=== PATIENT | male | born 1950 | race Caucasian/White ===

== ENCOUNTER 2018-09-27 13:07 | Observation (INO) ==
[2018-09-27] MEDS ORDERED: Isovue-370 500 ML INFUS..BTL IV ONE (13:17)
--- NOTE | 2018-09-27 13:17 | Emergency Department Note ---
Disposition Clinical Impression: Elevated troponin, NAZARIO (acute kidney injury) Syncope Qualifiers: Syncope type: unspecified Qualified Code(s): R55 - Syncope and collapse Disposition: Admitted As Inpatient Condition: Fair Referrals: Gibran Garcia MD [Primary Care Provider] - Forms: ED Satisfaction Letter Time of Disposition: 16:46 General Adult HPI - General Chief complaint: ED Chest Pain Stated complaint: Medical Assist Time Seen by Provider: 09/27/18 13:13 Source: patient Mode of arrival: ambulatory Limitations: no limitations Nursing Notes Reviewed: Yes Vital Signs Reviewed: Yes - History of Present Illness HPI Narrative: Patient is a 68-year-old male presenting for syncope. Patient has significant past medical vascular history. He states that while here in the hospital visiting a friend in the ICU, he became very lightheaded and dizzy started having mid chest pain that radiated to his back. He stated that he was sitting in a chair and became syncopal. He states that he is continuing to have lightheaded and dizziness as well as back and back pain. He describes to be a sharp shooting pain. He states he has slight pain in his chest that is from his abdomen. Patient denies any nausea, vomiting. He shortness of breath. He reggie es any lower extremity pain, numbness or tingling. - Related Data Home Medications Medication Instructions Recorded Confirmed Albuterol Sulfate [Albuterol 1 puff IH Q4HR PRN 08/26/18 08/26/18 Inhaler] Aspirin [Lo-Dose Aspirin EC] 81 mg PO DAILY 08/26/18 08/26/18 Atorvastatin [Lipitor] 80 mg PO HS 08/26/18 08/26/18 Budesonide/Formoterol 160/4.5 1 puff IH BID 08/26/18 08/26/18 [Symbicort 160/4.5] Cholecalciferol (Vitamin D3) 1,000 unit PO DAILY 08/26/18 08/26/18 [Vitamin D3] Fish Oil/Borage/Flax/Om3,6,9#1 1,200 mg PO DAILY 08/26/18 08/26/18 [[place] 3-6-9 1,200 mg Softgel] Furosemide [Lasix] 40 mg PO BID 08/26/18 08/26/18 Insulin Glargine [Lantus] 33 unit SQ HS 08/26/18 08/26/18 Metoprolol Succinate [Toprol Xl] 50 mg PO HS 08/26/18 08/26/18 Montelukast [Singulair] 10 mg PO DAILY 08/26/18 08/26/18 Multivitamin [One-Daily 1 each PO DAILY 08/26/18 08/26/18 Multi-Vitamin] Nitroglycerin [Nitrostat] 0.4 mg SL DAILY PRN 08/26/18 08/26/18 Pantoprazole Sodium [Protonix] 40 mg PO DAILY 08/26/18 08/26/18 Saxagliptin HCl [Onglyza] 5 mg PO DAILY 08/26/18 08/26/18 Tamsulosin HCl [Flomax] 0.4 mg PO DAILY 08/26/18 08/26/18 Previous Rx's Medication Instructions Recorded Clopidogrel [Plavix] 75 mg PO DAILY tablet 08/27/18 Lisinopril [Zestril] 2.5 mg PO DAILY tablet 08/27/18 Metformin HCl [Fortamet] 500 mg PO BID #0 08/27/18 Allergies Allergy/AdvReac Type Severity Reaction Status Date / Time oxycodone [Oxycodone] Allergy Hallucinati Verified 08/26/18 19:39 ng Sulfa (Sulfonamide Allergy Gastrointestinal Verified 08/26/18 08:33 Antibiotics) Upset All systems ED: reviewed and negative except as stated. Review of Systems: As Per HPI Constitutional: Denies: fever, chills, weakness, weight change ENT ED: Denies: congestion Cardiovascular: Reports: syncope. Denies: chest pain, palpitations Respiratory: Denies: cough, dyspnea, wheezes, hemoptysis, stridor Gastrointestinal: Reports: abdominal pain. Denies: nausea, vomiting, diarrhea Genitourinary: Denies: urgency, dysuria, frequency, hematuria Musculoskeletal: Reports: back pain Integumentary: Denies: rash, abrasion, lesions Neurological: Reports: as per HPI. Denies: headache, weakness, numbness, paresthesias, confusion Endocrine: Denies: fatigue Past Medical History - Past Medical History Medical history: Reports: arthritis, coronary artery disease, diabetes, hyperlipidemia, hypertension Surgical history: Reports: coronary bypass (CABG), orthopedic, other Psychiatric history: Reports: no psych history - Social History Smoking Status: Former smoker Smokeless Tobacco Status: No Alcohol use: Reports: none Drug use: Reports: none Physical Exam - General Limitations: no limitations General appearance: alert, in no apparent distress - Head Head exam: atraumatic, normocephalic, normal inspection - Eye Eye exam: Present: normal appearance, PERRL, EOMI - ENT ENT exam: normal exam, normal oropharynx, mucous membranes moist - Neck Neck exam: Present: normal inspection, full ROM, trachea midline - Chest Chest inspection: Present: normal inspection, symmetric chest wall rise - Respiratory Respiratory exam: Present: normal lung sounds bilaterally. Absent: respiratory distress, wheezes - Cardiovascular Cardiovascular exam: Present: regular rate, normal rhythm, normal heart sounds - Abdominal Exam Abdominal exam: Present: soft, tenderness (minimal throughout the entire abdomen, no guarding or rebound). Absent: Non-Tender, distention, guarding, rebound, rigidity - Extremities Exam Extremities exam: Present: normal inspection, full ROM, normal capillary refill. Absent: tenderness, pedal edema - Expanded Lower Extremity Exam Neurovascular/Tendon exam: Absent: pulse deficit, motor deficit, sensory deficit, tendon deficit - Back Exam Back exam: Present: normal inspection, full ROM. Absent: tenderness, CVA tenderness (R), CVA tenderness (L), vertebral tenderness - Neurological Exam Neurological exam: Present: alert, oriented X3 - Psychiatric Psychiatric exam: Present: normal affect, normal mood - Skin Skin exam: Present: warm, dry, intact, normal color Course Vital Signs Temperature 97.6 F 09/27/18 13:08 Pulse Rate 71 09/27/18 13:08 Respiratory Rate 20 09/27/18 13:08 Blood Pressure 109/65 09/27/18 13:08 O2 Sat by Pulse Oximetry 98 09/27/18 13:08 Temperature 97.6 F 09/27/18 13:08 Pulse Rate 63 09/27/18 15:30 Respiratory Rate 18 09/27/18 15:30 Blood Pressure 105/56 09/27/18 15:30 O2 Sat by Pulse Oximetry 97 09/27/18 15:30 Oxygen Delivery Oxygen Delivery Nasal Cannula Medical Decision Making - [facility] Narrative Medical decision making narrative: Patient is a 68-year-old male who presents for syncopal episode. Patient with multiple comorbidities. On examination, patient states he is slightly lighthe aded and dizzy, does have tenderness to palpation throughout the abdomen. Neuro exam is unremarkable. Concern for intracranial etiology. CTA of the head and neck are unremarkable. EKG was performed which shows ventricular rate of 76, intervals are within normal limits, left bundle branch block is noted, no ischemic changes are noted. CBC is unremarkable. BMP does show elevated serum creatinine from baseline. Patient was given fluids. He also had a slightly elevated troponin at 0.04, consistent with most likely demand ischemia. EKG shows no acute ischemic changes. At this point in time, given to go episode will admit patient for further evaluation and recommendations. - Medical Records Medical records reviewed: Yes I reviewed the patient's medical records. - Lab Data Lab results reviewed: Yes I reviewed the patient's lab results. Result diagrams: 09/27/18 13:15 09/27/18 13:15 Lab Results 09/27/18 09/27/18 09/27/18 Range/Units 13:15 13:15 13:15 WBC 8.2 (4.3-11.1) K/mcL RBC 4.99 (4.19-5.50) M/mcL Hgb 12.3 L (12.9-16.9) g/dL Hct 39.4 (37.5-50.1) % MCV 79.0 L (83.0-100.0) fL MCH 24.6 L (28.0-33.3) pg MCHC 31.2 L (31.6-35.5) g/dL RDW 15.7 H (11.5-14.5) % Plt Count 165 (140-400) K/mcL MPV 11.1 (9.4-12.4) fL Immature Gran % 0.2 (0-4) % Seg Neutrophils % 59.0 % Lymphocytes % 22.4 % Monocytes % 11.5 % Eosinophils % 5.8 % Basophils % 1.1 % Neutrophils # 4.9 (1.6-8.9) K/mcL Lymphocytes # 1.8 (0.6-4.6) K/mcL Monocytes # 1.0 (0.0-1.3) K/mcL Eosinophils # 0.5 (0.0-0.6) K/mcL Basophils # 0.1 (0.0-0.2) K/mcL PT 12.9 H (9.4-12.1) Seconds INR 1.1 Sodium 137 (136-145) mEq/L Potassium 4.5 (3.5-5.1) mEq/L Chloride 102 (98-107) mEq/L Carbon Dioxide 26 (23-29) mEq/L BUN 29 H (8-23) mg/dL Creatinine 1.68 H (0.70-1.30) mg/dL Est GFR ( Amer) 49 L (> 60) Est GFR (Non-Af Amer) 41 L (> 60) BUN/Creatinine Ratio 17 (6-26) Glucose 191 H (70-105) mg/dL Calculated Osmolality 295 (280-300) Calcium 9.3 (8.6-10.3) mg/dL Total Bilirubin 0.6 (0.3-1.0) mg/dL AST 31 (13-39) Units/L ALT 28 (7-52) Units/L Alkaline Phosphatase 89 (34-104) Units/L Troponin I 0.04 H* (< 0.04) ng/mL Serum Total Protein 7.1 (6.4-8.9) g/dL Albumin 4.2 (3.5-5.7) g/dL Globulin 2.9 (2.4-3.5) g/dL Albumin/Globulin Ratio 1.4 (1.1-2.2) - Radiology Data Radiology results reviewed: Yes I reviewed the patient's radiology results. Chest X-Ray 09/27/18 13:16 IMPRESSION: No acute cardiopulmonary process. D/ / Jorge Luis Gonzales MD / Jorge Luis Gonzales MD Interpreting Provider: Jorge Luis Gonzales MD Head CTA 09/27/18 13:17 IMPRESSION: 1. No acute intracranial abnormality. 2. Unremarkable CTA of the head. D/ / Perry Perez MD / Perry Perez MD Interpreting Provider: Perry Perez MD Neck CTA 09/27/18 13:17 IMPRESSION: 1. No acute intracranial abnormality. 2. Unremarkable CTA of the head. D/ / Perry Perez MD / Perry Perez MD Interpreting Provider: Perry Perez MD Critical Care Time Critical Care Time: Yes Total Critical Care Time: 35 Attestation: Total care time managing patient's AK and 60. Alice - Alice Situation: Demographics, MOA Background: Presenting Complaint, Relevant PMH, Meds, & Allergies Assessment: Vital Signs, Course and respsone to treatment, Exam Concerns, Patient/Family Expectation, Pertinant Lab Results, Outstanding Labs Recommendation: Barrier(s) to disposition, Recommendation based on pending studies, treatments, or consults SJayla Report Given to: hospitalist Alice Repor Time: 16:46 (accepted) Attestation Statement - Attestation Attestation: Patient was seen with resident physician. I reviewed the history, physical, assessment and plan, and agree with the findings. I also personally evaluated this patient and had [id number] time with this patient. 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 Patient apparently was at the ICU visiting a friend when he became lightheaded and diaphoretic and had near syncope to syncope. Patient was seated at the time, so he did not pass out to the point where he landed on the ground. His son seems to indicate that he thinks if he were standing he would have fallen over. Patient also had a twinge of chest pain through the episode. His history is significant for quadruple bypass several years ago and stents placed about a month ago. He currently says he feels generally weak but no other complaints. Chest pain is resolved. Review of systems as above remainder negative. Physical exam vital signs are stable. ENT is unremarkable. Heart regular rhythm and rate. Lungs clear. Abdomen is soft and nontender. Extremities show no signs of traumatic injury. Neurologically alert and oriented moves all extremities there is no focal deficits. Skin no rashes. Psych normal. ED course we will get a CTA of the head neck. EKG shows no acute ischemic changes. Because of the patient's age and cardiac history he will end up coming in for syncope workup. Hemodynamically he remained stable while in the emergen cy department. I agree with resident physician assessment and plan. I once workup is complete hospitalist service will be notified as to the need for admission. Patient's workup did not reveal any acute abnormalities. He was stable while in the emergency department. He did have mildly elevated troponin, but he also had Nazario. I he will be admitted for further evaluation and treatment. Critical care time for this patient was 35 minutes.
[2018-09-27 14:02] LABS: Basophils # 0.1 K/mcL (0.0-0.2); Basophils % 1.1 %; Eosinophils # 0.5 K/mcL (0.0-0.6); Eosinophils % 5.8 %; Hematocrit 39.4 % (37.5-50.1); Hemoglobin 12.3 g/dL (12.9-16.9); Immature Granulocytes % 0.2 % (0-4); Lymphocytes # 1.8 K/mcL (0.6-4.6); Lymphocytes % 22.4 %; Mean Corpuscular HGB Conc 31.2 g/dL (31.6-35.5); Mean Corpuscular Hemoglobin 24.6 pg (28.0-33.3); Mean Platelet Volume 11.1 fL (9.4-12.4); Monocytes % 11.5 %; Neutrophils # 4.9 K/mcL (1.6-8.9); Platelet Count 165 K/mcL (140-400); Red Blood Count 4.99 M/mcL (4.19-5.50); Red Cell Distribution Width 15.7 % (11.5-14.5)
[2018-09-27 14:10] LABS: INR 1.1; Prothrombin Time 12.9 Seconds (9.4-12.1)
[2018-09-27 14:23] LABS: Albumin 4.2 g/dL (3.5-5.7); Albumin/Globulin Ratio 1.4 (1.1-2.2); Bilirubin,Total 0.6 mg/dL (0.3-1.0); Calcium 9.3 mg/dL (8.6-10.3); Globulin 2.9 g/dL (2.4-3.5); Potassium 4.5 mEq/L (3.5-5.1); Total Protein 7.1 g/dL (6.4-8.9)
[2018-09-27 14:29] LABS: Troponin I 0.04 ng/mL (< 0.04)
[2018-09-27] MEDS ORDERED: 0.9 % Sodium Chloride 1,000 ML IVC ONE (14:49)
--- NOTE | 2018-09-27 17:56 | Internal Med History&Physical ---
Date of Encounter: 09/27/18 Time of Encounter: 17:48 Internal Medicine - H&P: HPI Admitted From: Home Plans for Post Hospital Care: Home History of present illness: Mr. Andino is a 68 year old male presenting for syncope. Patient has significant past medical of CAD s/p CABG and stents placement. He states that while here in the hospital visiting a friend in the ICU, he became very lightheaded and dizzy started having mid chest pain that radiated to his back. He stated that he was sitting in a chair and became syncopal. He states that he is continuing to have lightheaded and dizziness as well as back and back pain. He describes to be a sharp shooting pain. He received one nitro which he reported made his dizziness and chest pain twice worse. He had a stress test last year which brought up the same sensation as this time including syncope and chest pain. He had LHC about 4 weeks ago and had 2 stents placed. He has been complaint with his meds. BP is always on the low side. Patient denies any nausea, vomiting. He shortness of breath. He denies any lower extremity pain, numbness or tingling. He received IVF at the ED and syncope and chest pain resolved. Labs showed borderline troponin, slightly elevated creatinine, EKG showed LBBB with PAC. CXR unremarkable. CTA head and neck are normal. His symptoms are very concerning for malignant arrhythmia and ACS, he will be admitted for further evaluation. Pt will be full code in hospital Past Med Surg Social Fam HX - Past Medical History Medical history: arthritis, coronary artery disease, diabetes, hyperlipidemia, hypertension Additional medical history: obesity Psychiatric history: no psych history - Past Surgical History Surgical History: coronary bypass (CABG), orthopedic, other Additional surgical history: open heart sx. stents x2 (08/27/18). sg x4 right knee - Social History Smoking Status: Former smoker Smokeless Tobacco Status: No Alcohol use: none Drug use: none - Family History Mother Living Status: Hx Family Cardiac Disorders: Yes (HTN, Angina, Stroke) Hx Family Respiratory Disorders: No Hx Family Cancer: No Hx Family GI Disorders: No Hx Family Endocrine Disorder: No Hx Family Neuromuscular Disorders: No Hx Family Neurologic Disorders: No Hx Family HEENT Disorders: No Hx Family Autoimmune Disorders: No Father Hx Family Cardiac Disorders: No Hx Family Respiratory Disorders: No Hx Family Cancer: Yes (colon cancer) Hx Family GI Disorders: No Hx Family Endocrine Disorder: No Hx Family Neuromuscular Disorders: No Hx Family Neurologic Disorders: No Hx Family HEENT Disorders: No Hx Family Autoimmune Disorders: No Internal Medicine - H&P: Meds Albuterol Sulfate [Albuterol Inhaler] 1 puff IH Q4HR PRN 08/26/18 [History] Aspirin [Lo-Dose Aspirin EC] 81 mg PO DAILY 08/26/18 [History] Atorvastatin [Lipitor] 80 mg PO HS 08/26/18 [History] Budesonide/Formoterol 160/4.5 [Symbicort 160/4.5] 1 puff IH BID 08/26/18 [History] Cholecalciferol (Vitamin D3) [Vitamin D3] 1,000 unit PO DAILY 08/26/18 [History] Fish Oil/Borage/Flax/Om3,6,9#1 [[place] 3-6-9 1,200 mg Softgel] 1,200 mg PO DAILY 08/26/18 [History] Furosemide [Lasix] 40 mg PO BID 08/26/18 [History] Insulin Glargine [Lantus] 33 unit SQ HS 08/26/18 [History] Metoprolol Succinate [Toprol Xl] 50 mg PO HS 08/26/18 [History] Montelukast [Singulair] 10 mg PO DAILY 08/26/18 [History] Multivitamin [One-Daily Multi-Vitamin] 1 each PO DAILY 08/26/18 [History] Nitroglycerin [Nitrostat] 0.4 mg SL DAILY PRN 08/26/18 [History] Pantoprazole Sodium [Protonix] 40 mg PO DAILY 08/26/18 [History] Saxagliptin HCl [Onglyza] 5 mg PO DAILY 08/26/18 [History] Tamsulosin HCl [Flomax] 0.4 mg PO DAILY 08/26/18 [History] Clopidogrel [Plavix] 75 mg PO DAILY tablet 08/27/18 [Rx] Lisinopril [Zestril] 2.5 mg PO DAILY tablet 08/27/18 [Rx] Metformin HCl [Fortamet] 500 mg PO BID #0 08/27/18 [Rx] Allergy/AdvReac Type Severity Reaction Status Date / Time oxycodone [Oxycodone] Allergy Hallucinati Verified 08/26/18 19:39 ng Sulfa (Sulfonamide Allergy Gastrointestinal Verified 08/26/18 08:33 Antibiotics) Upset All Systems PM: A 10-system review of systems was performed and is negative for pertinent findings except as documented above in the HPI. Review of systems: REVIEW OF SYSTEMS: CONSTITUTIONAL: No weight loss, fever, chills, weakness or fatigue. HEENT: Eyes: No visual loss, blurred vision, double vision or yellow sclerae. Ears, Nose, Throat: No hearing loss, sneezing, congestion, runny nose or sore throat. SKIN: No rash or itching. CARDIOVASCULAR: see HPI. RESPIRATORY: No shortness of breath, cough or sputum. GASTROINTESTINAL: No anorexia, nausea, vomiting or diarrhea. No abdominal pain or blood. GENITOURINARY: No dysuria, urgency, or frequency. NEUROLOGICAL: No headache, dizziness, syncope, paralysis, ataxia, numbness or tingling in the extremities. No change in bowel or bladder control. MUSCULOSKELETAL: No muscle, back pain, joint pain or stiffness. HEMATOLOGIC: No anemia, bleeding or bruising. LYMPHATICS: No enlarged nodes. No history of splenectomy. PSYCHIATRIC: No history of depression or anxiety. ENDOCRINOLOGIC: No reports of sweating, cold or heat intolerance. No polyuria or polydipsia. - Constitutional Vitals: Temp Pulse Resp BP Pulse Ox 97.6 F 63 18 105/56 97 09/27/18 13:08 09/27/18 15:30 09/27/18 15:30 09/27/18 15:30 09/27/18 15:30 General appearance: Present: cooperative, A&O X 3, answers questions approp riately Exam: PHYSICAL EXAMINATION: GENERAL APPEARANCE: The patient is alert, oriented and in no acute distress. HEENT: Head is normocephalic. The sinuses are nontender. Pupils are equal and reactive. The nares are patent. Oropharynx clear without lesions. NECK: Supple without lymphadenopathy. HEART: Regular rate and rhythm. LUNGS: No crackles or wheezes are heard. ABDOMEN: Soft, nontender, nondistended with good bowel sounds heard. Inguinal area is normal. EXTREMITIES: Without cyanosis, clubbing or edema. NEUROLOGICAL: Gross nonfocal. SKIN: Warm and dry without any rash. Internal Med - H&P Results - Labs CBC & Chem 7: 09/27/18 13:15 09/27/18 13:15 Labs: Short CBC 09/27/18 Range/Units 13:15 WBC 8.2 (4.3-11.1) K/mcL Hgb 12.3 L (12.9-16.9) g/dL Hct 39.4 (37.5-50.1) % Plt Count 165 (140-400) K/mcL Neutrophils # 4.9 (1.6-8.9) K/mcL BMP 09/27/18 13:15 Sodium 137 Potassium 4.5 Chloride 102 Carbon Dioxide 26 BUN 29 H Creatinine 1.68 H Glucose 191 H Calcium 9.3 Cardiac Enzymes 09/27/18 Range/Units 13:15 Troponin I 0.04 H* (< 0.04) ng/mL Liver Function 09/27/18 Range/Units 13:15 Total Bilirubin 0.6 (0.3-1.0) mg/dL AST 31 (13-39) Units/L ALT 28 (7-52) Units/L Alkaline Phosphatase 89 (34-104) Units/L Albumin 4.2 (3.5-5.7) g/dL - Impressions ITS Impressions Chest X-Ray 09/27/18 13:16 IMPRESSION: No acute cardiopulmonary process. D/ / Jorge Luis Gonzales MD / Jorge Luis Gonzales MD Interpreting Provider: Jorge Luis Gonzales MD Head CTA 09/27/18 13:17 IMPRESSION: 1. No acute intracranial abnormality. 2. Unremarkable CTA of the head. D/ / Perry Perez MD / Perry Perez MD Interpreting Provider: Perry Perez MD Neck CTA 09/27/18 13:17 IMPRESSION: 1. No acute intracranial abnormality. 2. Unremarkable CTA of the head. D/ / Perry Perez MD / Perry Perez MD Interpreting Provider: Perry Perez MD - Assessment and plan (1) Syncope Current Visit: Yes Status: Acute Assessment and plan: 68 year old man with CAD s/p CABG and stents, CHF, COPD, DM presented with one episode of lightheadedness and syncope. trop borderline, Cr slightly elevated. EKG, CXR, CTA head and neck normal. - Given the significant Hx of CAD, cardiac related syncope is suspected. - Orthostatic BP once. - EKG showed LBBB with frequent PAC, hard to interpret ST-T change in the setting of LBBB. trop 0.04, will continue to trend. Continue tele monitor. ECHO. - Continue home meds including asa, statin, plavix. BB and ACEI. - Cardiology consult. Qualifiers: Syncope type: unspecified Qualified Code(s): R55 - Syncope and collapse (2) NAZARIO (acute kidney injury) Current Visit: Yes Status: Acute Assessment and plan: Likely due to verdiuresis, decrease home lasix from 40 mg BId to 20 mg BID. (3) Elevated troponin Current Visit: Yes Status: Acute Assessment and plan: Continue trending. (4) CAD (coronary artery disease) Current Visit: No Status: Acute Assessment and plan: Same as above. Qualifiers: Coronary Disease-Associated Artery/Lesion type: bypass graft [place] vs. tr ansplanted heart: [place] heart Associated angina: without angina Qualified Code(s): I25.810 - Atherosclerosis of coronary artery bypass graft(s) without angina pectoris (5) Hx of CABG Current Visit: No Status: Chronic Assessment and plan: same as above. (6) COPD (chronic obstructive pulmonary disease) Current Visit: No Status: Chronic Assessment and plan: Continue home meds. Qualifiers: COPD type: unspecified COPD Qualified Code(s): J44.9 - Chronic obstructive pulmonary disease, unspecified (7) Diabetes mellitus Current Visit: No Status: Chronic Assessment and plan: continue home insulin, hold all the oral agents, insulin sliding scale. 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 Qualifiers: Heart failure type: diastolic Heart failure chronicity: chronic Qualified Code(s): I50.32 - Chronic diastolic (congestive) heart failure (9) DVT prophylaxis Current Visit: Yes Status: Acute Assessment and plan: Heparin sq. - Time Spent With Patient Total time spent is greater than 50% in coordination of care (as documented) at patient's floor/unit and/or counseling patient: Greater than 35 minutes
[2018-09-27] MEDS ORDERED: traMADol 50 MG TABLET PO PRN (18:10)
[2018-09-27] MEDS ORDERED: Naloxone 0.4 MG/ML INJ IVP PRN (18:10)
[2018-09-27] MEDS ORDERED: Acetaminophen 325 MG TABLET PO PRN (18:10)
[2018-09-27] MEDS ORDERED: D5% in Water 1,000 ML IVC PRN (18:12)
[2018-09-27] MEDS ORDERED: Dextrose Gel 15 GM/37.5 ML TUBE PO PRN ×2 (18:12)
[2018-09-27] MEDS ORDERED: *HR* Dextrose 50 % in Water (Syg) 50 ML SYRINGE IVP PRN (18:12)
[2018-09-27] MEDS ORDERED: Nitroglycerin 0.4 MG TAB.SUBL SL PRN (18:26)
[2018-09-27 19:44] LABS: Bilirubin,Urine Negative (Negative); Blood,Urine Negative (Negative); Clarity,Urine Clear (Clear); Color,Urine Yellow (Yellow); Glucose,Urine (UA) Normal (Normal); Ketones,Urine Negative (Negative); Leukocyte Esterase,Urine Negative (Negative); Nitrite,Urine Negative (Negative); PH,Urine 5.5 pH Units (5.0-8.0); Protein,Urine Negative (Neg-Trace); Specific Gravity,Urine > 1.030 (1.010-1.025); Urobilinogen,Urine Normal (Normal)
[2018-09-27] MEDS: Insulin LISPRO 300 UNITS/3 ML VIAL SQ SCH (21:43)
[2018-09-27] MEDS: Insulin DETEMIR 100 UNIT/ML X5UNITS SQ SCH (21:47)
[2018-09-27] MEDS: *HR* Heparin 5,000 UNIT/ML VIAL SQ SCH (21:47)
[2018-09-28 01:32] LABS: Hematocrit 36.8 % (37.5-50.1); Hemoglobin 11.5 g/dL (12.9-16.9); Mean Corpuscular HGB Conc 31.3 g/dL (31.6-35.5); Mean Corpuscular Hemoglobin 24.8 pg (28.0-33.3); Mean Corpuscular Volume 79.3 fL (83.0-100.0); Platelet Count 119 K/mcL (140-400); Red Blood Count 4.64 M/mcL (4.19-5.50); Red Cell Distribution Width 15.6 % (11.5-14.5)
[2018-09-28 01:49] LABS: Albumin 3.8 g/dL (3.5-5.7); Albumin/Globulin Ratio 1.5 (1.1-2.2); Bilirubin,Total 0.4 mg/dL (0.3-1.0); Calcium 8.7 mg/dL (8.6-10.3); Chol/HDL Ratio 3.9 (0-4.9); Globulin 2.6 g/dL (2.4-3.5); Magnesium 1.7 mg/dL (1.6-2.6); Potassium 4.1 mEq/L (3.5-5.1); Total Protein 6.4 g/dL (6.4-8.9)
[2018-09-28] MEDS: *HR* Heparin 5,000 UNIT/ML VIAL SQ SCH ×2 (05:00→16:45)
[2018-09-28] MEDS: Aspirin Enteric Coated 81 MG Tablet PO SCH (07:20)
[2018-09-28] MEDS: Insulin LISPRO 300 UNITS/3 ML VIAL SQ SCH ×4 (07:20→20:55)
--- NOTE | 2018-09-28 14:13 | Cardiology Consult Note ---
<John Mackey - Last Filed: 09/28/18 14:41> Date of Encounter: 09/28/18 Time of Encounter: 14:10 Assessment and Plan (1) Syncope Current Visit: Yes Status: Acute Per Cardiology: Head and neck CTA negative. Orthostatic vital signs appear to be pending. (2) Elevated troponin Current Visit: Yes Status: Acute Per Cardiology: Very mild initial troponin elevation in setting of syncopal event with subsequent troponins negative 3. Repeat limited echo with the definity pending to reevaluate EF. Has known history of CAD-- recent stenting one month ago. No cardiac rehabilitation consult warranted at this time. Patient developed chest pain and utilized nitroglycerin glycerin pill, it appears patient had hypotensive episode with nitroglycerin. Suspect initial troponin demand ischemia from hypotension. Awaiting repeat echo to evaluate EF. (3) Ischemic cardiomyopathy Current Visit: Yes Status: Chronic Per Cardiology: Has known ischemic cardiomyopathy with actual outpatient echo pending. Current echo unable to obtain EF. We will check repeat limited echo with Definity to further assess EF currently. Will resume beta yuri as tolerated, consider resuming DEBBIE inhibitor if able. (4) CAD (coronary artery disease) Current Visit: No Status: Chronic Per Cardiology: Last left heart catheterization 08/2018: Lesion Findings/Interventions * Left Main Coronary Artery There is a 30% stenosis in the Mid LMCA. * Left Anterior Descending There is a 80% stenosis in the Proximal LAD. There is a 100% stenosis in the Mid LAD- [employer]. Mid/distal LAD fill via patent LIAO graft. * Circumflex There is a 12 mm long, 90% stenosis in the [place]/Proximal Circumflex. The lesion has a PAVAN flow of 3 and has no thrombus present. An intervention was performed on the Ostial Circumflex with a final stenosis of 0%. There were no lesion complications. The final PAVAN flow was 3. There is a 100% stenosis in the 2nd Marginal. The lesion has a PAVAN flow of 0. OM2 fills via patent seq SVG from OM3 to OM2. There is a 12 mm long, 99% stenosis in the 3rd Marginal. The lesion has a PAVAN flow of 3 and has no thrombus present. An intervention was performed on the 3rd Marginal with a final stenosis of 0%. There were no lesion complications. The final PAVAN flow was 3. * Ramus There is a 100% stenosis in the Ramus- [employer]. The lesion has a PAVAN flow of 0 and has collaterals which feed from left to left. * Right Coronary Artery There is a 40% stenosis in the Proximal RCA. There is a 99% stenosis in the Right PDA- small, diffusely diseased. R PDA fills via patent SVG. Additional Findings: Grafts * The left internal mammary graft to the Mid LAD is patent. PAVAN flow is 3. * The saphenous vein graft to the Right PDA is patent. PAVAN flow is 3. * The saphenous vein graft to the 2nd Marginal is occluded. The sequence portion from OM2 to OM3 is patent. On aspirin and Plavix. Will resume home dose of Lipitor. Long-acting nitrate, beta yuri, DEBBIE inhibitor on hold, will resume Toprol-XL half of previous dose at 25 mg by mouth daily for now. Discussion w patient/family: The assessment and plan as outlined above was discussed with the patient and/or family members who expressed understanding and agreement. All questions were answered. Thank you for involving us in the care of your patient. Please call with any questions. History of Present Illness Consult date: 09/28/18 Consult reason: CP Chief complaint: Dizziness, CP History of present illness: Previous records reviewed: "Mr. Andino is a 68 year old male presenting for syncope. Patient has significant past medical of CAD s/p CABG and stents placement. He states that while here in the hospital visiting a friend in the ICU, he became very lightheaded and dizzy started having mid chest pain that radiated to his back. He stated that he was sitting in a chair and became syncopal. He states that he is continuing to have lightheaded and dizziness as well as back and back pain. He describes to be a sharp shooting pain. He received one nitro which he reported made his dizziness and chest pain twice worse. He had a stress test last year which brought up the same sensation as this time including syncope and chest pain. He had LHC about 4 weeks ago and had 2 stents placed. He has been complaint with his meds. BP is always on the low side. Patient denies any nausea, vomiting. He shortness of breath. He denies any lower extremity pain, numbness or tingling". Cardiology consult for syncope and chest pain. Patient seen with at bedside. Patient confirms above information. He reports visiting friend and development midsternal chest heaviness, first episode of chest pain since stenting about one month ago. He reports he has never utilize nitroglycerin pills in the past, decided to utilize one nitroglycerin pill within one to 2 minutes developed episodes of dizziness, lightheadedness and believes he passed out in a chair. Reports systolic blood pressure in the 80s in the ER. Denies any current chest pain. Denies any short of breath or palpitations. Denies any active bleeding or blood loss. Reports compliance of medications at home. Denies any infectious process. Past Med Surg Social Fam HX - Past Medical History Attestation: Yes The following information was validated with the patient. Source: patient, old records reviewed Medical history: arthritis, coronary artery disease, diabetes, hyperlipidemia, hypertension Additional medical history: obesity Psychiatric history: no psych history - Past Surgical History Surgical History: coronary bypass (CABG), orthopedic, other Additional surgical history: open heart sx. stents x2 (08/27/18). sg x4 right knee - Social History Smoking Status: Former smoker Smokeless Tobacco Status: No Alcohol use: none Drug use: none - Family History Mother Living Status: Hx Family Cardiac Disorders: Yes (HTN, Angina, Stroke) Hx Family Respiratory Disorders: No Hx Family Cancer: No Hx Family GI Disorders: No Hx Family Endocrine Disorder: No Hx Family Neuromuscular Disorders: No Hx Family Neurologic Disorders: No Hx Family HEENT Disorders: No Hx Family Autoimmune Disorders: No Father Hx Family Cardiac Disorders: No Hx Family Respiratory Disorders: No Hx Family Cancer: Yes (colon cancer) Hx Family GI Disorders: No Hx Family Endocrine Disorder: No Hx Family Neuromuscular Disorders: No Hx Family Neurologic Disorders: No Hx Family HEENT Disorders: No Hx Family Autoimmune Disorders: No Medications and Allergies Albuterol Sulfate [Albuterol Inhaler] 1 puff IH Q4HR PRN 08/26/18 [History] Aspirin [Lo-Dose Aspirin EC] 81 mg PO DAILY 08/26/18 [History] Atorvastatin [Lipitor] 80 mg PO HS 08/26/18 [History] Budesonide/Formoterol 160/4.5 [Symbicort 160/4.5] 1 puff IH BID 08/26/18 [History] Cholecalciferol (Vitamin D3) [Vitamin D3] 2,000 unit PO DAILY 08/26/18 [History] Furosemide [Lasix] 40 mg PO BID 08/26/18 [History] Insulin Glargine [Lantus] 66 unit SQ HS 08/26/18 [History] Metoprolol Succinate [Toprol Xl] 50 mg PO HS 08/26/18 [History] Montelukast [Singulair] 10 mg PO DAILY 08/26/18 [History] Multivitamin [One-Daily Multi-Vitamin] 1 each PO DAILY 08/26/18 [History] Nitroglycerin [Nitrostat] 0.4 mg SL DAILY PRN 08/26/18 [History] Pantoprazole Sodium [Protonix] 40 mg PO DAILY 08/26/18 [History] Saxagliptin HCl [Onglyza] 5 mg PO DAILY 08/26/18 [History] Tamsulosin HCl [Flomax] 0.4 mg PO DAILY 08/26/18 [History] Clopidogrel [Plavix] 75 mg PO DAILY tablet 08/27/18 [Rx] Lisinopril [Zestril] 2.5 mg PO DAILY tablet 08/27/18 [Rx] Metformin HCl [Fortamet] 500 mg PO BID #0 08/27/18 [Rx] Allergy/AdvReac Type Severity Reaction Status Date / Time oxycodone [Oxycodone] Allergy Hallucinati Verified 08/26/18 19:39 ng Sulfa (Sulfonamide Allergy Gastrointestinal Verified 08/26/18 08:33 Antibiotics) Upset All Systems Review: The remainder of the systems were reviewed and are negative - Cardiovascular Cardiovascular: as per HPI, chest pain at rest, lightheadedness Physical Examination Vital Signs, Last 4 Hours Temp Pulse Resp BP Pulse Ox 09/28/18 12:00 99.0 F 85 16 116/72 93 General: Conversant, No Apparent Distress HEENT: Atraumatic, Normocephaly, Mucus Membranes Moist Neck: No JVD, Normal carotid pulses Cardiac: Reg Rate and Rhythm, Normal S1 and S2, No Murmur Lungs: Normal Breath Sounds, No Wheeze, Rales, Rhonchi Neuro: Alert and responsive, No focal deficits noted Abdomen: Soft, Non-Tender Skin: No rashes noted on visualized skin Musculoskeletal: No Chest Wall Tenderness Extremities: No Clubbing, No Cyanosis, No Edema, Normal Pulses Results 09/28/18 01:09 09/28/18 01:09 Lab Results Laboratory Tests 09/27/18 09/27/18 09/27/18 13:15 13:15 19:40 Hgb Hct INR 1.1 Potassium Creatinine Est GFR (Non-Af Amer) Troponin I 0.04 H* < 0.03 LDL Cholesterol, Calc 09/28/18 09/28/18 09/28/18 01:09 01:09 01:09 Hgb 11.5 L Hct 36.8 L INR Potassium 4.1 Creatinine 1.66 H Est GFR (Non-Af Amer) 41 L Troponin I < 0.03 LDL Cholesterol, Calc 46 09/28/18 07:18 Hgb Hct INR Potassium Creatinine Est GFR (Non-Af Amer) Troponin I < 0.03 LDL Cholesterol, Calc ITS Impressions Chest X-Ray 09/27/18 13:16 IMPRESSION: No acute cardiopulmonary process. D/ / Jorge Luis Gonzales MD / Jorge Luis Gonzales MD Interpreting Provider: Jorge Luis Gonzales MD Head CTA 09/27/18 13:17 IMPRESSION: 1. No acute intracranial abnormality. 2. Unremarkable CTA of the head. D/ / Perry Perez MD / Perry Perez MD Interpreting Provider: Perry Perez MD Neck CTA 09/27/18 13:17 IMPRESSION: 1. No acute intracranial abnormality. 2. Unremarkable CTA of the head. D/ / Perry Perez MD / Perry Perez MD Interpreting Provider: Perry Perez MD Echocardiogram 09/28/18 18:16 Impressions: Technically sub-optimal due to poor echocardiographic windows. LV endocardial border not well visualized to estimate LVEF. Atypical septal motion consistent with post-operative status. Mild left ventricular diastolic dysfunction. RV is not optimally visualized. Mild tricuspid regurgitation. Mild pulmonary hypertension. Recommend repeat Limited study with Imaging Enhancement to evaluate LVEF. Findings: Study Quality * Technically sub-optimal due to poor echocardiographic windows. ECG Findings * Unclear underlying rhythm, possibly sinus with ectopy. Left Ventricle * LV endocardial border not well visualized to estimate LVEF. * Atypical septal motion consistent with post-operative status. * Mild left ventricular diastolic dysfunction. Right Ventricle * RV is not optimally visualized. Left Atrium * Moderately dilated left atrium. Right Atrium * Right atrium is not well visualized. Aortic Valve * No aortic regurgitation. * Trileaflet aortic valve. * No aortic stenosis. Mitral Valve * Normal mitral valve structure. * No mitral stenosis. * Trace mitral regurgitation. Tricuspid Valve * Tricuspid valve not well visualized. * Mild tricuspid regurgitation. * Estimated RA pressure is 8 mmHg. * Estimated RVSP is 36 mmHg. * Mild pulmonary hypertension. Pulmonic Valve * Pulmonic valve is not well visualized. * No pulmonic stenosis. * No pulmonic regurgitation. Pulmonary Artery * Pulmonary artery not well visualized. Aorta * Normally sized aortic root. Pericardium * There is no pericardial effusion present. Interatrial Septum * Interatrial septum not well evaluated. IVC * The IVC is not dilated. * < 50% respiratory change. Active Medications Acetaminophen (Tylenol) 650 mg PO Q6HR PRN PRN Reason: Mild Pain/Fever Stop: 03/29/19 18:11 Aspirin (Aspirin Ec) 81 mg PO DAILY [facility] Stop: 03/30/19 09:01 Last Admin: 09/28/18 07:20 Dose: 81 mg Clopidogrel Bisulfate (Plavix) 75 mg PO DAILY [facility] Stop: 03/30/19 09:01 Last Admin: 09/28/18 07:20 Dose: 75 mg Dextrose/Water (Dextrose 50% (Syg)) 25 ml IVP AD PRN PRN Reason: Hypoglycemia Stop: 03/29/19 18:13 Glucagon (Glucagen) 1 mg IM ONCE PRN PRN Reason: Hypoglycemia Stop: 03/29/19 18:13 Glucose (Gluctose) 15 gm PO ONCE PRN PRN Reason: Hypoglycemia Stop: 03/29/19 18:13 Glucose (Gluctose) 30 gm PO ONCE PRN PRN Reason: Hypoglycemia Stop: 03/29/19 18:13 Heparin Sodium (Porcine) (Heparin) 5,000 unit SQ Q12HCO [facility] Stop: 03/29/19 18:16 Last Admin: 09/28/18 05:00 Dose: 5,000 unit Dextrose (Dextrose 5%) 1,000 mls @ 100 mls/hr IVC .Q10H PRN PRN Reason: HYPOGLYCEMIA Stop: 03/29/19 18:13 Insulin Detemir (Levemir) 30 unit SQ HS ANA ROSA Stop: 03/29/19 21:01 Last Admin: 09/27/18 21:47 Dose: 30 unit Insulin Human Lispro (Humalog) 0 units SQ HS ANA ROSA; Protocol Stop: 03/29/19 21:01 Last Admin: 09/27/18 21:43 Dose: Not Given Insulin Human Lispro (Humalog) 0 units SQ TIDAC ANA ROSA; Protocol Stop: 03/30/19 07:31 Last Admin: 09/28/18 12:02 Dose: 4 units Naloxone HCl (Narcan) 0.4 mg IVP Q2MIN PRN PRN Reason: SEE COMMENTS Stop: 03/29/19 18:11 Nitroglycerin (Nitroglycerin) 0.4 mg SL Q5MIN PRN PRN Reason: Chest Pain Stop: 03/29/19 18:27 - Imaging and Cardiology Echo: pending, report reviewed Cardiac cath: report reviewed - EKG Interpretation EKG results cardiology: personally reviewed, normal ECG, sinus rhythm, other (Appears to be sinus rhythm with PACs and PVCs on telemetry with average heart rate 88 the past 12 hours, no significant events noted) Consult Discharge Plan - Plan Referrals: Gibran Garcia MD [Primary Care Provider] - <Alessio Oliveira J - Last Filed: 09/28/18 19:18> Date of Encounter: 09/28/18 Time of Encounter: 11:00 - Attending Attestation I have personally performed a face to face evaluation on this patient. I have reviewed and agree with the care plan. History and Exam by me shows: CC: chest pain, syncope HPI: Pt was visting friend from hospital, developed new epigastric burning, 4/10, not associated with diaphoresis, nausea or shortness of breath, lasted around four minutes, took his first ever sl ntg, within two minutes became dizzy and lightheaded, had to sit down, thinks he may have passed out for several seconds, awoke on his back looking at the ceiling, however chest pain had resoved, He notes dizziness had resolved while laying flat, returned when stood up and tried to walk, again resolved with lying down. Pts called the squad, pt more conversant and arousable while flat, symptoms resolved en route to [place]. He has had several similar episodes which are not as severe, last less than two minutes and resolve with rest. He is currently resting comportably, reports best he has felt in weeks. ROS: reviewed PMH: chart reviewed, agree with findings Labs reviewed PE: Pt seen and examined, chart reviewed, agree with findings as documented IMP/Plan 1. Chest pain if unclear etiology, continue to monitor enzemes, telemetry, await limited echo results, encourage ambulation on telemetry. Assessment and Plan Discussion w patient/family: The assessment and plan as outlined above was discussed with the patient and/or family members who expressed understanding and agreement. All questions were answered. Thank you for involving us in the care of your patient. Please call with any questions. History of Present Illness History of present illness: Mr. Andino is a 68 year old male All Systems Review: The remainder of the systems were reviewed and are negative Physical Examination Vital Signs, Last 4 Hours Temp Pulse Resp BP Pulse Ox 09/28/18 15:50 98 F 66 16 111/69 94 Results 09/28/18 01:09 09/28/18 01:09 Lab Results 09/27/18 09/28/18 09/28/18 19:40 01:09 01:09 WBC 7.1 Hgb 11.5 L Hct 36.8 L Plt Count 119 L Sodium Potassium Chloride Carbon Dioxide BUN Creatinine Glucose Calcium Magnesium Total Bilirubin AST ALT Alkaline Phosphatase Troponin I < 0.03 < 0.03 09/28/18 09/28/18 01:09 07:18 WBC Hgb Hct Plt Count Sodium 138 Potassium 4.1 Chloride 104 Carbon Dioxide 26 BUN 31 H Creatinine 1.66 H Glucose 222 H Calcium 8.7 Magnesium 1.7 Total Bilirubin 0.4 AST 25 ALT 24 Alkaline Phosphatase 93 Troponin I < 0.03
[2018-09-28] MEDS ORDERED: Perflutren Lipid Microsphere 1.3 ML in 0.9 % Sodium Chloride 8.7 ML IVP ONE (14:24)
--- NOTE | 2018-09-28 14:41 | Internal Med Progress Note ---
Hospitalist Progress Note - Encounter Date of Encounter: 09/28/18 Time of Encounter: 14:39 - Subjective Interval History: Patient seen and examined at bedside. Patient states that he feels back to normal today. He states his symptoms of near syncope occurred shortly after taking nitroglycerin for chest pain. He denies any further chest pain or near s yncope symptoms. Denies fever, chills, shortness of breath, diaphoresis. - Exam Vitals: Temp Pulse Resp BP Pulse Ox 99.0 F 85 16 116/72 93 09/28/18 12:00 09/28/18 12:00 09/28/18 12:00 09/28/18 12:00 09/28/18 12:00 Exam: Gen.: Alert and oriented 3, no acute distress HEENT: Mucous membranes moist with no lesions or bleeding noted Heart: Regular rate and rhythm, no murmurs, rubs, gallops Lungs: Clear to auscultation bilaterally, no rales, rhonchi, wheezes. Abdomen: Soft, nontender, nondistended. Normoactive bowel sounds. Extremities: No clubbing, cyanosis, or edema noted Skin: Warm dry and intact - Assessment and Plan (1) Syncope Current Visit: Yes Status: Acute Assessment and Plan: Etiology unclear, unclear if this is cardiac/arrhythmia in nature although I am also suspecting that the patient's near syncopal episode may be related to nitroglycerin use area no symptoms since presentation. Initial echo could not evaluate EF, repeat echo pending. Cardiology following and will await further recommendations. Continue cardiac telemetry. (2) CAD (coronary artery disease) Current Visit: No Status: Chronic Assessment and Plan: Stable. Recent PCI in August 2018. Doubt that this is new obstructive lesion. Continue aspirin, Plavix, statin, beta yuri. Cardiology following. (3) Hx of CABG Current Visit: No Status: Chronic (4) Elevated troponin Current Visit: Yes Status: Acute Assessment and Plan: Resolved, was initially 0.04, has since normalized. Doubt ACS. Cardiology following. (5) NAZARIO (acute kidney injury) Current Visit: Yes Status: Acute Assessment and Plan: GFR 41, stable since admission. Good urine output. Patient has had multiple episodes of NAZARIO on the past but renal function has usually returned to normal. Possibly due to overdiuresis. Continue to hold Lasix as the patient appears euvolemic at this time and reassess daily. (6) COPD (chronic obstructive pulmonary disease) Current Visit: No Status: Chronic Assessment and Plan: Stable. No evidence of acute exacerbation. (7) Diabetes mellitus Current Visit: No Status: Chronic Assessment and Plan: Blood sugar under good control at this time. Continue basal insulin with sliding scale coverage. Adjust insulin based on blood sugar readings. (8) CHF (congestive heart failure) Current Visit: No Status: Chronic Assessment and Plan: No evidence of acute exacerbation. Continue to monitor. (9) DVT prophylaxis Current Visit: Yes Status: Acute Assessment and Plan: Heparin 5000 units subcutaneous twice a day. - Time Spent with Patient Total time spent is greater than 50% in coordination of care (as documented) at patient's floor/unit and/or counseling patient: 25 - 35 minutes Plan of Care Discussed with: patient Internal Medicine: Result - Labs CBC & Chem 7: 09/28/18 01:09 09/28/18 01:09 Labs: Short CBC 09/28/18 Range/Units 01:09 WBC 7.1 (4.3-11.1) K/mcL Hgb 11.5 L (12.9-16.9) g/dL Hct 36.8 L (37.5-50.1) % Plt Count 119 L (140-400) K/mcL BMP 09/28/18 01:09 Sodium 138 Potassium 4.1 Chloride 104 Carbon Dioxide 26 BUN 31 H Creatinine 1.66 H Glucose 222 H Calcium 8.7 Cardiac Enzymes 09/27/18 09/28/18 09/28/18 Range/Units 19:40 01:09 07:18 Troponin I < 0.03 < 0.03 < 0.03 (< 0.04) ng/mL Liver Function 09/28/18 Range/Units 01:09 Total Bilirubin 0.4 (0.3-1.0) mg/dL AST 25 (13-39) Units/L ALT 24 (7-52) Units/L Alkaline Phosphatase 93 (34-104) Units/L Albumin 3.8 (3.5-5.7) g/dL Urine 09/27/18 Range/Units 19:23 Urine Color Yellow (Yellow) Urine Clarity Clear (Clear) Urine pH 5.5 (5.0-8.0) pH Units Ur Specific [place] > 1.030 H (1.010-1.025) Urine Protein Negative (Neg-Trace) mg/dL Urine Glucose (UA) Normal (Normal) mg/dL - ABG Interpretation ABG results: PT/INR, D-dimer PT 12.9 Seconds (9.4-12.1) H 09/27/18 13:15 - Impressions Impressions Head CTA 09/27/18 13:17 IMPRESSION: 1. No acute intracranial abnormality. 2. Unremarkable CTA of the head. D/ / Perry Perez MD / Perry Perez MD Interpreting Provider: Perry Perez MD Neck CTA 09/27/18 13:17 IMPRESSION: 1. No acute intracranial abnormality. 2. Unremarkable CTA of the head. D/ / Perry Perez MD / Perry Perez MD Interpreting Provider: Perry Perez MD Echocardiogram 09/28/18 18:16 Impressions: Technically sub-optimal due to poor echocardiographic windows. LV endocardial border not well visualized to estimate LVEF. Atypical septal motion consistent with post-operative status. Mild left ventricular diastolic dysfunction. RV is not optimally visualized. Mild tricuspid regurgitation. Mild pulmonary hypertension. Recommend repeat Limited study with Imaging Enhancement to evaluate LVEF. Findings: Study Quality * Technically sub-optimal due to poor echocardiographic windows. ECG Findings * Unclear underlying rhythm, possibly sinus with ectopy. Left Ventricle * LV endocardial border not well visualized to estimate LVEF. * Atypical septal motion consistent with post-operative status. * Mild left ventricular diastolic dysfunction. Right Ventricle * RV is not optimally visualized. Left Atrium * Moderately dilated left atrium. Right Atrium * Right atrium is not well visualized. Aortic Valve * No aortic regurgitation. * Trileaflet aortic valve. * No aortic stenosis. Mitral Valve * Normal mitral valve structure. * No mitral stenosis. * Trace mitral regurgitation. Tricuspid Valve * Tricuspid valve not well visualized. * Mild tricuspid regurgitation. * Estimated RA pressure is 8 mmHg. * Estimated RVSP is 36 mmHg. * Mild pulmonary hypertension. Pulmonic Valve * Pulmonic valve is not well visualized. * No pulmonic stenosis. * No pulmonic regurgitation. Pulmonary Artery * Pulmonary artery not well visualized. Aorta * Normally sized aortic root. Pericardium * There is no pericardial effusion present. Interatrial Septum * Interatrial septum not well evaluated. IVC * The IVC is not dilated. * < 50% respiratory change. Consult Discharge Plan - Plan Referrals: Gibran Garcia MD [Primary Care Provider] - (1) Syncope Qualifiers: Syncope type: unspecified Qualified Code(s): R55 - Syncope and collapse (2) CAD (coronary artery disease) Qualifiers: Coronary Disease-Associated Artery/Lesion type: bypass graft [place] vs. transplanted heart: ute heart Associated angina: without angina Qualified Code(s): I25.810 - Atherosclerosis of coronary artery bypass graft(s) without angina pectoris (6) COPD (chronic obstructive pulmonary disease) Qualifiers: COPD type: unspecified COPD Qualified Code(s): J44.9 - Chronic obstructive pulmonary disease, unspecified (7) Diabetes mellitus Qualifiers: Diabetes mellitus type: type 2 Diabetes mellitus fdc insulin use: with fdc use Diabetes mellitus complication status: with circulatory complication Diabetes mellitus complication detail: with other circulatory complications Qualified Code(s): E11.59 - Type 2 diabetes mellitus with other circulatory complications; Z79.4 - MCFP (current) use of insulin (8) CHF (congestive heart failure) Qualifiers: Heart failure type: diastolic Heart failure chronicity: chronic Qualified Code(s): I50.32 - Chronic diastolic (congestive) heart failure
[2018-09-28] MEDS: Metoprolol XL (24 HR) Succ 50 MG TAB.ER.24H PO SCH (16:44)
[2018-09-28] MEDS: Budesonide/Formoterol 160/4.5 1 PUFF INH IH SCH (20:10)
[2018-09-28] MEDS: Insulin DETEMIR 100 UNIT/ML X5UNITS SQ SCH (20:21)
[2018-09-29] MEDS: *HR* Heparin 5,000 UNIT/ML VIAL SQ SCH (05:22)
[2018-09-29 06:11] LABS: Basophils # 0.1 K/mcL (0.0-0.2); Basophils % 1.2 %; Eosinophils # 0.5 K/mcL (0.0-0.6); Eosinophils % 7.3 %; Hematocrit 40.3 % (37.5-50.1); Hemoglobin 12.3 g/dL (12.9-16.9); Immature Granulocytes % 0.2 % (0-4); Lymphocytes # 1.7 K/mcL (0.6-4.6); Lymphocytes % 25.8 %; Mean Corpuscular HGB Conc 30.5 g/dL (31.6-35.5); Mean Corpuscular Hemoglobin 24.5 pg (28.0-33.3); Mean Corpuscular Volume 80.3 fL (83.0-100.0); Monocytes # 0.9 K/mcL (0.0-1.3); Monocytes % 13.9 %; Neutrophils # 3.4 K/mcL (1.6-8.9); Platelet Count 123 K/mcL (140-400); Red Blood Count 5.02 M/mcL (4.19-5.50); Red Cell Distribution Width 15.5 % (11.5-14.5); Segmented Neutrophils % 51.6 %
[2018-09-29 06:30] LABS: BUN/Creatinine Ratio 20 (6-26); Blood Urea Nitrogen 21 mg/dL (8-23); Calcium 9.1 mg/dL (8.6-10.3); Carbon Dioxide 26 mEq/L (23-29); Chloride 106 mEq/L (98-107); Glucose 148 mg/dL (70-105); Magnesium 1.7 mg/dL (1.6-2.6); Osmolality,Calculated 294 (280-300); Potassium 4.3 mEq/L (3.5-5.1); Sodium 139 mEq/L (136-145); eGFR For Non-African Americans > 60 (> 60)
[2018-09-29] MEDS: Aspirin Enteric Coated 81 MG Tablet PO SCH (07:30)
[2018-09-29] MEDS: Insulin LISPRO 300 UNITS/3 ML VIAL SQ SCH (07:30)
[2018-09-29] MEDS: Metoprolol XL (24 HR) Succ 50 MG TAB.ER.24H PO SCH (07:30)
--- NOTE | 2018-09-29 08:17 | Cardiology Progress Note ---
Date of Encounter: 09/29/18 Time of Encounter: 08:15 Assessment and Plan (1) Syncope Current Visit: Yes Status: Acute Per Cardiology: Head and neck CTA negative. Orthostatic vital signs still not recorded-- re- ordered. Telemetry reviewed with average heart rate 81 the past 12 hours, sinus rhythm, no significant events noted. Orthostatics finally completed: Selected Entries 09/29/18 09:08 Pulse Rate [Orthostatic Lying Left Arm] 71 Pulse Rate [Orthostatic Sitting Left Arm] 67 Pulse Rate [Orthostatic Standing Left Arm] 93 Blood Pressure [Orthostatic Lying Left Arm] 118/84 Blood Pressure [Orthostatic Sitting Left Arm] 126/81 Blood Pressure [Orthostatic Standing Left Arm] 123/86 Qualifiers: Syncope type: unspecified Qualified Code(s): R55 - Syncope and collapse (2) Elevated troponin Current Visit: Yes Status: Acute Per Cardiology: Very mild initial troponin elevation in setting of syncopal event with subsequent troponins negative 3. Repeat limited echo with the definity pending to reevaluate EF. Has known history of CAD-- recent stenting one month ago. Patient developed chest pain and utilized nitroglycerin pill, it appears patient had hypotensive episode with nitroglycerin. Suspect initial troponin demand ischemia from hypotension. Repeat limited echo with Definity showed EF 55%. Cardiology signing off, reconsult as needed, follow-up arranged. (3) Ischemic cardiomyopathy Current Visit: Yes Status: Chronic Per Cardiology: EF improved to 55%. On BB. Consider resuming DEBBIE inhibitor if able. (4) CAD (coronary artery disease) Current Visit: No Status: Chronic Per Cardiology: Last left heart catheterization 08/2018: Lesion Findings/Interventions * Left Main Coronary Artery There is a 30% stenosis in the Mid LMCA. * Left Anterior Descending There is a 80% stenosis in the Proximal LAD. 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 Mid/distal LAD fill via patent LIAO graft. * Circumflex There is a 12 mm long, 90% stenosis in the [place]/Proximal Circumflex. The lesion has a PAVAN flow of 3 and has no thrombus present. An intervention was performed on the Ost[place] Circumflex with a final stenosis of 0%. There were no lesion complications. The final PAVAN flow was 3. There is a 100% stenosis in the 2nd Marginal. The lesion has a PAVAN flow of 0. OM2 fills via patent seq SVG from OM3 to OM2. There is a 12 mm long, 99% stenosis in the 3rd Marginal. The lesion has a PAVAN flow of 3 and has no thrombus present. An intervention was performed on the 3rd Marginal with a final stenosis of 0%. There were no lesion complications. The final PAVAN flow was 3. * Ramus There is a 100% stenosis in the Ramus- MARKETING COMMUNICATIONS MANAGER. The lesion has a PAVAN flow of 0 and has collaterals which feed from left to left. * Right Coronary Artery There is a 40% stenosis in the Proximal RCA. There is a 99% stenosis in the Right PDA- small, diffusely diseased. R PDA fills via patent SVG. Additional Findings: Grafts * The left internal mammary graft to the Mid LAD is patent. PAVAN flow is 3. * The saphenous vein graft to the Right PDA is patent. PAVAN flow is 3. * The saphenous vein graft to the 2nd Marginal is occluded. The sequence portion from OM2 to OM3 is patent. ---- On aspirin, statin, BB, Plavix. Consider resuming home dose of Imdur and ACEI-- however, SBP right now 100's. Qualifiers: Coronary Disease-Associated Artery/Lesion type: bypass graft [place] vs. transplanted heart: [place] heart Associated angina: without angina Qualified Code(s): I25.810 - Atherosclerosis of coronary artery bypass graft(s) without angina pectoris Discussion w patient/family: The assessment and plan as outlined above was discussed with the patient and/or family members who expressed understanding and agreement. All questions were answered. Thank you for involving us in the care of your patient. Please call with any questions. Subjective Principal diagnosis: CP Interval history: Denies any concerns or complaints overnight. Denies any recurrent chest pain or dizziness. Denies any palpitations. Objective Vital Signs, Last 4 Hours Temp Pulse Resp BP Pulse Ox 09/29/18 06:46 98.1 F 57 16 133/70 94 09/29/18 04:53 97.5 F L 80 17 110/61 92 General: Conversant, No Apparent Distress HEENT: Atraumatic, Normocephaly, Mucus Membranes Moist Neck: No JVD, Normal carotid pulses Cardiac: Reg Rate and Rhythm, Normal S1 and S2, No Murmur Lungs: Normal Breath Sounds, No Wheeze, Rales, Rhonchi Neuro: Alert and responsive, No focal deficits noted Abdomen: Soft, Non-Tender Skin: No rashes noted on visualized skin Musculoskeletal: No Chest Wall Tenderness Extremities: No Clubbing, No Cyanosis, No Edema, Normal Pulses Results 09/29/18 05:50 09/29/18 05:50 Lab Results 09/29/18 09/29/18 05:50 05:50 WBC 6.6 Hgb 12.3 L Hct 40.3 Plt Count 123 L Sodium 139 Potassium 4.3 Chloride 106 Carbon Dioxide 26 BUN 21 Creatinine 1.04 Glucose 148 H Calcium 9.1 Magnesium 1.7 Impressions Echocardiogram 09/28/18 18:16 Impressions: Technically sub-optimal due to poor echocardiographic windows. LV endocardial border not well visualized to estimate LVEF. Atypical septal motion consistent with post-operative status. Mild left ventricular diastolic dysfunction. RV is not optimally visualized. Mild tricuspid regurgitation. Mild pulmonary hypertension. Recommend repeat Limited study with Imaging Enhancement to evaluate LVEF. Findings: Study Quality * Technically sub-optimal due to poor echocardiographic windows. ECG Findings * Unclear underlying rhythm, possibly sinus with ectopy. Left Ventricle * LV endocardial border not well visualized to estimate LVEF. * Atypical septal motion consistent with post-operative status. * Mild left ventricular diastolic dysfunction. Right Ventricle * RV is not optimally visualized. Left Atrium * Moderately dilated left atrium. Right Atrium * Right atrium is not well visualized. Aortic Valve * No aortic regurgitation. * Trileaflet aortic valve. * No aortic stenosis. Mitral Valve * Normal mitral valve structure. * No mitral stenosis. * Trace mitral regurgitation. Tricuspid Valve * Tricuspid valve not well visualized. * Mild tricuspid regurgitation. * Estimated RA pressure is 8 mmHg. * Estimated RVSP is 36 mmHg. * Mild pulmonary hypertension. Pulmonic Valve * Pulmonic valve is not well visualized. * No pulmonic stenosis. * No pulmonic regurgitation. Pulmonary Artery * Pulmonary artery not well visualized. Aorta * Normally sized aortic root. Pericardium * There is no pericardial effusion present. Interatrial Septum * Interatrial septum not well evaluated. IVC * The IVC is not dilated. * < 50% respiratory change. Active Medications Acetaminophen (Tylenol) 650 mg PO Q6HR PRN PRN Reason: Mild Pain/Fever Stop: 03/29/19 18:11 Last Admin: 09/28/18 20:22 Dose: 650 mg Albuterol Sulfate (Albuterol Inhaler) 1 puff IH Q4HR PRN PRN Reason: Shortness Of Breath Stop: 03/30/19 14:43 Aspirin (Aspirin Ec) 81 mg PO DAILY [facility] Stop: 03/30/19 09:01 Last Admin: 09/29/18 07:30 Dose: 81 mg Atorvastatin Calcium (Lipitor) 80 mg PO HS [facility] Stop: 03/30/19 21:01 Last Admin: 09/28/18 20:22 Dose: 80 mg Budesonide/Formoterol Fumarate (Symbicort) 1 puff IH BIDR [facility]; Protocol Stop: 03/30/19 22:01 Last Admin: 09/28/18 20:10 Dose: 1 puff Clopidogrel Bisulfate (Plavix) 75 mg PO DAILY [facility] Stop: 03/30/19 09:01 Last Admin: 09/29/18 07:30 Dose: 75 mg Dextrose/Water (Dextrose 50% (Syg)) 25 ml IVP AD PRN PRN Reason: Hypoglycemia Stop: 03/29/19 18:13 Glucagon (Glucagen) 1 mg IM ONCE PRN PRN Reason: Hypoglycemia Stop: 03/29/19 18:13 Glucose (Gluctose) 15 gm PO ONCE PRN PRN Reason: Hypoglycemia Stop: 03/29/19 18:13 Glucose (Gluctose) 30 gm PO ONCE PRN PRN Reason: Hypoglycemia Stop: 03/29/19 18:13 Heparin Sodium (Porcine) (Heparin) 5,000 unit SQ Q12HCO [facility] Stop: 03/29/19 18:16 Last Admin: 09/29/18 05:22 Dose: 5,000 unit Dextrose (Dextrose 5%) 1,000 mls @ 100 mls/hr IVC .Q10H PRN PRN Reason: HYPOGLYCEMIA Stop: 03/29/19 18:13 Insulin Detemir (Levemir) 30 unit SQ HS [facility] Stop: 03/29/19 21:01 Last Admin: 09/28/18 20:21 Dose: 30 unit Insulin Human Lispro (Humalog) 0 units SQ HS [facility]; Protocol Stop: 03/29/19 21:01 Last Admin: 09/28/18 20:55 Dose: Not Given Insulin Human Lispro (Humalog) 0 units SQ TIDAC [facility]; Protocol Stop: 03/30/19 07:31 Last Admin: 09/29/18 07:30 Dose: Not Given Metoprolol Succinate (Toprol Xl) 25 mg PO DAILY [facility] Stop: 03/30/19 14:31 Last Admin: 09/29/18 07:30 Dose: 25 mg Naloxone HCl (Narcan) 0.4 mg IVP Q2MIN PRN PRN Reason: SEE COMMENTS Stop: 03/29/19 18:11 Nitroglycerin (Nitroglycerin) 0.4 mg SL Q5MIN PRN PRN Reason: Chest Pain Stop: 03/29/19 18:27 Consult Discharge Plan - Plan Referrals: Gibran Garcia MD [Primary Care Provider] -
[2018-09-29] MEDS: Budesonide/Formoterol 160/4.5 1 PUFF INH IH SCH (09:43)
--- NOTE | 2018-09-29 10:29 | Discharge Summary ---
- NOTES TO OUTPATIENT PROVIDER Notes to Outpatient Provider: Patient had a near syncopal episode likely due to nitro on top of low normal blood pressure, we have decreased his Toprol XL to 25mg daily and lasix to 20mg BID Date of Encounter: 09/29/18 Time of Encounter: 10:28 - Discharge Diagnosis (1) Syncope Priority: Primary Status: Resolved Qualifiers: Syncope type: unspecified Qualified Code(s): R55 - Syncope and collapse (2) CAD (coronary artery disease) Priority: Secondary Status: Chronic Qualifiers: Coronary Disease-Associated Artery/Lesion type: bypass graft [place] vs. transplanted heart: [place] heart Associated angina: without angina Qualified Code(s): I25.810 - Atherosclerosis of coronary artery bypass graft(s) without angina pectoris (3) Hx of CABG Priority: Secondary Status: Chronic (4) Elevated troponin Priority: Secondary Status: Resolved (5) NAZARIO (acute kidney injury) Priority: Secondary Status: Resolved (6) COPD (chronic obstructive pulmonary disease) Priority: Secondary Status: Chronic Qualifiers: COPD type: unspecified COPD Qualified Code(s): J44.9 - Chronic obstructive pulmonary disease, unspecified (7) Diabetes mellitus Priority: Secondary Status: Chronic Qualifiers: Diabetes mellitus type: type 2 Diabetes mellitus assisted insulin 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 Andino is a 68 year old male with history of coronary disease, diabetes who presented after a near syncopal episode while visiting a friend at the hospital. This occurred immediately after taking nitroglycerin. Patient states that prior to this several days earlier. Noticed that his blood pressure been more normal. Patient was admitted due to concerns of this being cardiac/arrhythmia was however he seen by cardiology who did not feel that this was related to an arrhythmia, he had no noted arrhythmias while here, echocardiogram was stable. We will decrease the patient's beta yuri and Lasix dose at discharge encouraged him to stay well-hydrated. Patient has been up moving around without difficulty and has had no more near syncopal episodes. Patient will be discharged home in stable condition. Discharge discussed with: patient - Time Spent with Patient Total time spent providing and/or coordinating discharge services: Less than 30 minutes - Discharge Medications Prescriptions: Furosemide [Lasix] 20 mg PO BID #60 tablet Metoprolol XL (24 HR) Succ [Toprol Xl] 25 mg PO DAILY #30 tab.er.24h Home Medications: Albuterol Sulfate [Albuterol Inhaler] 1 puff IH Q4HR PRN 08/26/18 [History] Aspirin [Lo-Dose Aspirin EC] 81 mg PO DAILY 08/26/18 [History] Atorvastatin [Lipitor] 80 mg PO HS 08/26/18 [History] Budesonide/Formoterol 160/4.5 [Symbicort 160/4.5] 2 puff IH BID 08/26/18 [History] Cholecalciferol (Vitamin D3) [Vitamin D3] 2,000 unit PO DAILY 08/26/18 [History] Insulin Glargine [Lantus] 33 unit SQ HS 08/26/18 [History] Montelukast [Singulair] 10 mg PO HS 08/26/18 [History] Multivitamin [One-Daily Multi-Vitamin] 1 each PO DAILY 08/26/18 [History] Nitroglycerin [Nitrostat] 0.4 mg SL Q5MIN PRN 08/26/18 [History] Pantoprazole Sodium [Protonix] 40 mg PO DAILY 08/26/18 [History] Saxagliptin HCl [Onglyza] 5 mg PO DAILY 08/26/18 [History] Tamsulosin HCl [Flomax] 0.4 mg PO DAILY 08/26/18 [History] Clopidogrel [Plavix] 75 mg PO DAILY tablet 08/27/18 [Rx] Lisinopril [Zestril] 2.5 mg PO DAILY tablet 08/27/18 [Rx] Furosemide [Lasix] 20 mg PO BID #60 tablet 09/29/18 [Rx] Metformin HCl [Fortamet] 500 mg PO BIDWM 09/29/18 [History] Metoprolol XL (24 HR) Succ [Toprol Xl] 25 mg PO DAILY #30 tab.er.24h 09/29/18 [Rx] Allergies/Adverse Reactions: Allergy/AdvReac Type Severity Reaction Status Date / Time oxycodone [Oxycodone] Allergy Hallucinati Verified 08/26/18 19:39 ng Sulfa (Sulfonamide Allergy Gastrointestinal Verified 08/26/18 08:33 Antibiotics) Upset Date of admission: 09/27/18 19:06 Primary care physician: Tushar Hernandez Consults: 09/27/18 18:25 Consult to Cardiology [CONS] Stat Comment: Consulting Provider: [facility] [place] Reason for Consult: syncope Call Completed: Yes Discharging clinician: Jagjit Paz Anticipated date of discharge: 09/29/18 - Constitutional Vitals: Temp Pulse Resp BP Pulse Ox 98.1 F 67 18 126/81 94 09/29/18 06:46 09/29/18 09:08 09/29/18 09:45 09/29/18 09:08 09/29/18 09:45 General appearance: Present: cooperative, A&O X 3, answers questions appropriately Exam: . - Respiratory Respiratory exam: Present: CTAB. Absent: rales, rhonchi, wheezes - Cardiovascular Cardiovascular exam: Present: RRR. Absent: gallop, rubs, systolic murmur - GI/Abdominal GI/Abdominal exam: Present: normal bowel sounds, soft. Absent: distended, tenderness - Extremities Exam Extremities exam: Present: warm. Absent: pedal edema, tenderness - Neurological Exam Neurological exam: Present: alert, CN II-XII intact, oriented X3, no focal deficits - Patient Status Disposition: Home, Self-Care Condition: Fair Functional capacity at discharge: independent ambulation Overall status at discharge: patient is progressing back to baseline - Discharge Instructions Follow Up With: Gibran Garcia MD [Primary Care Provider] - (1 week) Dasha Waller MD [Partnered Physician] - (as scheduled) Additional Instructions: Please follow-up with your PCP within one week Please follow-up with your criminal investigator as scheduled Please resume your home medications other than below Please decrease your Toprol-XL to 25 mg daily and Lasix to 20 mg twice a day Please stay well-hydrated. Please return for any worsening symptoms. - Diet and Activity Activity: increase activity as tolerated Diet: diabetic diet, low salt diet
[2018-09-29 10:40] VITALS: BP 102/72
--- NOTE | 2018-09-29 14:49 | Electrocardiograph Report ---
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
== END 2018-09-29 11:32 | disposition home or self-care (01) ==
LOC: EMEROOARM 13:07 → 2ANU 13:07 → SUATTDRO 19:06 → 2ANU 19:53
PROVIDERS: ADMIT Internal Medicine; ATTEND Internal Medicine